=== PATIENT | male | born 1955 | race Caucasian/White ===

== ENCOUNTER → 2021-03-01 | Outpatient (CLI) | payer BC ==
--- NOTE | 2021-03-01 16:15 | XR ---
EXAMINATION TYPE: XR chest 2V DATE OF EXAM: 03/01/2021 COMPARISON: NONE HISTORY: Z01.818 TECHNIQUE: Frontal and lateral views of the chest are obtained. FINDINGS: There is no focal air space opacity, pleural effusion, or pneumothorax seen. The cardiac silhouette size is within normal limits. The osseous structures are intact. IMPRESSION: No acute cardiopulmonary process.
== END | disposition home or self-care (01) ==
LOC: LABPAT 14:19
PROVIDERS: ATTEND Orthopaedic Surgery Orthopaedic Surgery of the Spine
DX: Z01.818 Encounter for other preprocedural examination (principal); G95.9 Disease of spinal cord, unspecified; R00.1 Bradycardia, unspecified
CPT/HCPCS: 71046; 93005

== ENCOUNTER → 2021-03-08 | Outpatient (CLI) | payer BC ==
[2021-03-08 10:41] LABS: Basophils % (A) 1 %; Eosinophils # (A) 0.1 k/uL (0-0.7); Eosinophils % (A) 3 %; HCT 44.3 % (39.0-53.0); HGB 14.8 gm/dL (13.0-17.5); Lymphocytes # (A) 1.7 k/uL (1.0-4.8); Lymphocytes % (A) 40 %; MCHC 33.5 g/dL (31.0-37.0); MCV 98.5 fL (80.0-100.0); Mean Platelet Volume 8.1; Monocytes # (A) 0.2 k/uL (0-1.0); Monocytes % (A) 5 %; Neutrophils % (A) 48 %; Platelet Count 159 k/uL (150-450); RBC 4.49 m/uL (4.30-5.90); RDW 13.2 % (11.5-15.5); WBC 4.2 k/uL (3.8-10.6)
[2021-03-08 10:55] LABS: Partial Thromboplastin Time 23.8 sec (22.0-30.0); Prothrombin Time 10.3 sec (9.0-12.0)
[2021-03-08 11:06] LABS: African American GFR (CKD) >90 (>60 ml/min/1.73 sqM); Anion Gap 8 mmol/L; Blood Urea Nitrogen 16 mg/dL (9-20); Calcium 9.7 mg/dL (8.4-10.2); Carbon Dioxide 26 mmol/L (22-30); Chloride 107 mmol/L (98-107); Glucose 106 mg/dL (74-99); Non-African American GFR(CKD) 87 (>60 ml/min/1.73 sqM); Potassium 4.4 mmol/L (3.5-5.1); Sodium 141 mmol/L (137-145)
[2021-03-08 11:33] LABS: Appearance,Urine Clear (Clear); Bilirubin,Urine Negative (Negative); Blood,Urine Negative (Negative); Color,Urine Yellow; Glucose,Urine (UA) Negative (Negative); Ketones,Urine Negative (Negative); Leukocyte Esterase,Urine Negative (Negative); Nitrite,Urine Negative (Negative); Protein,Urine Negative (Negative); Specific Gravity,Urine 1.022 (1.001-1.035); Urobilinogen,Urine <2.0 mg/dL (<2.0)
== END | disposition home or self-care (01) ==
LOC: LABPAT 09:34
PROVIDERS: ATTEND Orthopaedic Surgery Orthopaedic Surgery of the Spine
DX: Z01.812 Encounter for preprocedural laboratory examination (principal); M50.021 Cervical disc disorder at C4-C5 level with myelopathy
CPT/HCPCS: 36415; 80048; 81003; 85025; 85610; 85730

== ENCOUNTER 2021-03-13 11:17 | Observation (INO) | payer BC ==
[2021-03-07 11:53] VITALS: BMI 29.5
[~2021-03-13 11:17] MED LIST: DEXAMETHASONE SOD PHOSPHATE 4 MG/ML 1 ML VIAL IV ONE; HYDROmorphone 0.5 MG/0.5 ML SYRINGE IVP PRN; ONDANSETRON 4 MG/2 ML VIAL IVP ONE
[2021-03-13] MEDS ORDERED: LIDOCAINE 1% (10MG/ML) FOR IV START INTRADERMA ONE ×2 (12:08→12:13)
[2021-03-13] MEDS: LACTATED RINGERS 1,000 ML IV SCH (12:13)
[2021-03-13] MEDS ORDERED: DEXAMETHASONE SOD PHOSPHATE 10 MG/ML 1 ML VIAL ONE (12:50)
[2021-03-13] MEDS ORDERED: SUCCINYLCHOLINE CHLORIDE VIAL 200 MG/10 ML VIAL IV ONE (12:50)
[2021-03-13] MEDS ORDERED: HYDROmorphone (PF) 1 MG/ML ONE (12:50)
[2021-03-13] MEDS ORDERED: ROCURONIUM 10 MG/ML (5 ML VIAL) IV ONE (12:50)
[2021-03-13] MEDS ORDERED: NEOSTIGMINE 1 MG/ML 10 ML VIAL ONE (12:50)
[2021-03-13] MEDS ORDERED: PROPOFOL 10 MG/ML 20 ML VIAL IV ONE (12:50)
[2021-03-13] MEDS ORDERED: MIDAZOLAM 2 MG/2 ML VIAL ONE (12:50)
[2021-03-13] MEDS ORDERED: fentaNYL (PF) 50 MCG/ML 2 ML AMP ONE (12:50)
[2021-03-13] MEDS ORDERED: GLYCOPYRROLATE 0.2 MG/ML 2 ML VIAL ONE (12:50)
[2021-03-13] MEDS ORDERED: KETOROLAC 15 MG/ML 1 ML VIAL ONE (12:50)
[2021-03-13] MEDS ORDERED: THROMBIN (BOVINE) 5,000 UNIT VIAL TOPICAL ONE (13:25)
[2021-03-13] MEDS ORDERED: LIDOCAINE 2%-EPI 1:100,000 20 ML VIAL SQ ONE (13:25)
[2021-03-13] MEDS ORDERED: GELATIN SPONGE,ABSORB (LARGE) 1 EACH SPONGE MISCELLANE ONE (13:25)
--- NOTE | 2021-03-13 13:58 | XR ---
EXAMINATION TYPE: XR cervical spine 1V DATE OF EXAM: 03/13/2021 COMPARISON: NONE HISTORY: Needle placement TECHNIQUE: One view submitted FINDINGS: ET tube noted. Degenerative change involving the cervical spine most marked at C5-6 and C6- C7. Surgical metallic instrument seen along the anterior margin the spinal column. IMPRESSION: Intraoperative localization
[2021-03-13] MEDS ORDERED: LACTATED RINGERS 1,000 ML IV ONE (14:28)
[2021-03-13] MEDS ORDERED: HYDROmorphone 0.5 MG/0.5 ML SYRINGE IVP PRN (15:32)
[2021-03-13] MEDS ORDERED: BENZOCAINE/MENTHOL LOZENG 1 EACH LOZENGE MUCOUS MEM PRN (15:32)
[2021-03-13] MEDS ORDERED: MAGNESIUM HYDROXIDE 2,400 MG/10 ML CUP PO PRN (15:32)
[2021-03-13] MEDS ORDERED: HYDROmorphone 1 MG/ML 1 ML SYRINGE IVP PRN (15:32)
[2021-03-13] MEDS ORDERED: ONDANSETRON 4 MG/2 ML VIAL IVP PRN (15:33)
[2021-03-13] MEDS ORDERED: ACETAMINOPHEN TAB 325 MG TAB PO PRN (15:33)
--- NOTE | 2021-03-13 15:41 | P.OP ---
Date of Procedure: 03/13/21 Preoperative Diagnosis: Cervical myelopathy, severe cervical stenosis C4 5 C5 6 C6 7, herniated nucleus pulposis C4 5 C5 6 C6 7, upper extremity weakness Postoperative Diagnosis: Same Anesthesia: GETA Pathology: none sent Condition: stable Disposition: PACU Description of Procedure: BRIEF OPERATIVE NOTE Preoperative Diagnosis:Cervical myelopathy, severe cervical stenosis C4 5 C5 6 C6 7, herniated nucleus pulposis C4 5 C5 6 C6 7, upper extremity weakness Postoperative Diagnosis:Cervical myelopathy, severe cervical stenosis C4 5 C5 6 C6 7, herniated nucleus pulposis C4 5 C5 6 C6 7, upper extremity weakness Procedure: Anterior cervical decompression with discectomy and fusion C4 5 C5 6 C6 7 Placement of interbody graft C4 5 C5 6 C6 7 Application of anterior cervical plate C4 5 6 and 7 Surgeon: Dr. Messina Obstetrics Specialist: Ricky Latham is present throughout the entire the case persistence during positioning, dissection, exposure, visualization, and all crucial elements of the case as well as closure. Anesthesia: General anesthesia Estimated blood loss: Approximately 75 mL Complications: None apparent Components implanted: K2M [place] anterior cervical plate with screws and Vikos interbody bone graft with 1 mL of DBX bone putty Disposition: To recovery room in good stable condition. OPERATIVE INDICATIONS The patient has had significant issues in their neck and upper extremities since sustaining an injury when he fell off a ladder. Patient had significant trauma over his head and face and has had severe weakness and issues at his neck and upper extremities since that time. He's had significant scapular winging as well on the right side. He was found have severe disc herniation with significant stenosis particular at C5 6 and C6 7 with disc herniation and stenosis at C4 5 as well. He was having cord changes and evidence of myelopathy. These findings correlate with his imaging and his injury. The patient has been through conservative treatment. He is not having any further benefit despite aggressive conservative care. We discussed possibly surgical intervention. We discussed various treatment options including surgery, and the patient wishes to proceed with surgery We discussed the risk, patient's alternatives and benefits of surgery including but not limited to, risk of bleeding risk of infection, risk of need for further surgery, risk of decreased, loss of motion, muscle function, malunion nonunion, hardware failure, nerve damage, paralysis, heart attack, and . OPERATIVE SUMMARY After discussing all the risks, patient alternatives and benefits at length, the patient elected to proceed with surgical intervention, signed informed consent, and presented for their procedure. The patient was seen and examined in the preoperative holding area and the surgical site was marked. The patient was given antibiotics and brought to the operating room. The patient was positioned on the operating room table in a supine position being careful to pad any bony prominences and pressure points. The patient was sedated and intubated by anesthesia in standard fashion. Once the airway and C- spine were stabilized the patient's arms were padded and tucked at her side, with her shoulders gently taped. The head was placed in a donut pad with the neck in good neutral alignment and position. We were careful to maintain the patient's cervical spine and good neutral alignment and position throughout. The patient was prepped and draped in a normal standard fashion. An appropriate timeout and keystone protocol performed. We were able to proceed with the surgery. The local wound area was infiltrated with local anesthetic. An incision was made transversely approximately 2-1/2 cm over the appropriate levels at C5 6. Dissection was taken down subcutaneously to the level of the platysma which was split in line with its fibers. Dissection was taken with a carotid approach, with the trachea and esophagus medial and the carotid sheath laterally. We dissected down to the anterior surface of the vertebral bodies. Intraoperative x-ray was taken which showed a marker at the appropriate level of C5 6. With the appropriate level positively confirmed, we were able to proceed with discectomy at the appropriate levels starting at C6 7 and then moving his C5 6 and then to C4 5. All of the operative levels were exposed appropriately. The patient had all their twitches back, and there was no evidence of recurrent laryngeal issue. The wound was copiously irrigated and suctioned dry as had been done periodically throughout the case. At the appropriate level/levels, I established an annulotomy with an 11 blade scalpel. A discectomy was performed with a combination of pituitary rongeurs, curettes, a high-speed bur, and Kerrison rongeurs. The posterior longitudinal ligament was taken down as were any posterior osteophytes. There is severe disc herniation with calcification of the posterior longitudinal ligament both at C5 6 and C6 7 causing further stenosis and compression and is spinal cord. Great care was taken to remove the disc herniations as well as the hard disc at the area. It seemed as though there had been some potential injury posteriorly which had caused further change in the posterior longitudinal ligament and consultation over the area. I was able to remove the posterior longitudinal ligament was tear ossification as well. This gave good central and bilateral foraminal decompression. There is no evidence of any dural tear or leak. The endplates were prepared with a high- speed bur. With the endplates in good parallel position, I was able to size for the appropriate size interbody graft. The wound was irrigated and suctioned dry the graft was prepared and malleted into position. It had good alignment and position with the anterior surface flush with the anterior surface of the vertebral bodies at C4 5 and 6 and 7. This was done similarly the appropriate levels. With the grafts intact, I was able to measure and contour and appropriate sized plate. The plate was positioned at the midline over the appropriate levels from C4 to C7. Screw holes were established with a hand drill and drill guide. Screws were placed in good alignment and position with excellent bony purchase. They were seated under the locking device. The construct was checked and found to be stable. Intraoperative x-ray was taken which showed good alignment and position of the implants at the appropriate levels. There was no evidence of any dural tear or leak. Good hemostasis was maintained. The wound was copiously irrigated and suctioned dry as had been done periodically throughout the case. The platysma was closed with absorbable suture. The subcutaneous tissue was closed. The subcuticular tissue was closed with absorbable suture. The wound was cleaned and dried and dressed appropriately. A soft cervical collar was placed appropriately. The patient was woken up by anesthesia, extubated, transferred back gently to their hospital bed and brought to the recovery room in good stable condition. The patient will be admitted to the hospital for appropriate postoperative care, medical management and monitoring. We will continue to follow them closely about the postoperative course.
--- NOTE | 2021-03-13 15:45 | XR ---
EXAMINATION TYPE: XR cervical spine 1V DATE OF EXAM: 03/13/2021 COMPARISON: NONE HISTORY: Postop TECHNIQUE: One view submitted FINDINGS: ET tube noted and there is postsurgical change involving the mid and lower cervical spine. Portions obscured due to overlying soft tissues. Visualized alignment is near-anatomic. IMPRESSION: Postoperative change
[2021-03-13] MEDS: SODIUM CHLORIDE 0.9% 1,000 ML IV SCH (17:21)
[2021-03-13] MEDS: CYCLOBENZAPRINE 10 MG TAB PO PRN (17:30)
[2021-03-13] MEDS: HYDROcodone/APAP 5-325MG 1 EACH TAB PO PRN (22:57)
[2021-03-14] MEDS: CYCLOBENZAPRINE 10 MG TAB PO PRN (05:54)
[2021-03-14] MEDS: LACTATED RINGERS 1,000 ML IV SCH ×2 (05:57→17:30)
[2021-03-14] MEDS: SODIUM CHLORIDE 0.9% 1,000 ML IV SCH ×2 (05:57→17:30)
[2021-03-14 06:59] LABS: Basophils % (A) 0 %; Eosinophils % (A) 0 %; HCT 42.6 % (39.0-53.0); HGB 14.5 gm/dL (13.0-17.5); Lymphocytes # (A) 1.1 k/uL (1.0-4.8); Lymphocytes % (A) 10 %; MCH 33.3 pg (25.0-35.0); MCHC 34.1 g/dL (31.0-37.0); MCV 97.7 fL (80.0-100.0); Mean Platelet Volume 8.3; Monocytes # (A) 0.5 k/uL (0-1.0); Monocytes % (A) 5 %; Neutrophils # (A) 8.4 k/uL (1.3-7.7); Neutrophils % (A) 84 %; Platelet Count 174 k/uL (150-450); RBC 4.36 m/uL (4.30-5.90); RDW 12.9 % (11.5-15.5); WBC 10.1 k/uL (3.8-10.6)
[2021-03-14] MEDS: HYDROcodone/APAP 5-325MG 1 EACH TAB PO PRN ×2 (09:06→19:27)
--- NOTE | 2021-03-14 12:50 | P.PN ---
Progress Note - Text Progress Note Date: 03/14/21 Orthopedic spine: History of present illness: Patient is a pleasant 65-year-old male who is seen at the bedside following anterior cervical decompression and fusion performed yesterday. Patient states they are doing okay postsurgically. He has continued to have some pain at his cervicothoracic junction which was present prior to surgical intervention. He continues to have scapular winging on the right. He does feel he has better range of motion of his right upper extremity that he did prior to surgical intervention. He has some stiffness at his cervical spine. Currently does not complain of nausea, vomiting, fever, or chills. Patient states pain has been adequately controlled. Patient is eating without difficulty. Postoperatively he has had some difficulty with urination and had retention overnight. He had a Weinstein catheter during surgical intervention which was removed following surgical intervention. Due to his inability to ambulate the Weinstein catheter had been reinserted. Weinstein catheter is currently intact. He continues to have blood and urine within the Weinstein catheter bag and hose. He states he does have a previous history of penile injury and sought further evaluation with urology. He states he did have internal scar formation at that time. He is currently waiting for consultation with urology. Physical Exam Cervical Fusion: Status post surgical day number 1 Patient is awake, alert, and oriented 3 Vital signs stable Good chest excursion with deep inspiration and expiration Education Technician strength, thumb strength, interosseous strength, biceps strength, triceps strength, and shoulder strength positive sustained bilaterally Some pain with palpation over the cervical thoracic junction posteriorly Evidence of right scapular winging Pneumatic cuffs intact bilateral lower extremities Dressing is clean, dry, and intact; no erythema, purulence, or signs of infection Soft cervical collar is intact; collar is removed during physical examination Weinstein catheter intact with approximately 1200 mL of blood and urine within the Weinstein catheter bag and tubing Assessment: Status post C4-5, C5-6, and C6-7 anterior cervical decompression and fusion Cervicothoracic pain Right scapular winging Cervical myelopathy Upper extremity weakness Postoperative urinary retention Hematuria History of penile injury History of headaches History of dizziness History of blurred vision History of fall from roof Plan: 1. Ambulate as tolerated; work with Physical Therapy to increase mobilization 2. Continue pain control with oral and IV medications as needed; wean off IV medications in anticipation for discharge 3. Patient may shower with Optifoam dressing; patient may remove Optifoam in 3 days and shower without a dressing at that time 4. Patient is currently in for consultation by urology for postoperative urinary retention and hematuria 5. We will continue to follow the patient closely; if the patient is able to improve in regards to his cervical spine and does have improvement in regards to his urinary retention and hematuria we may plan for discharge home as early as tomorrow, 03/15/2021 6. Patient can follow-up with Ricky Vargas PA-C or Dr. Amarjit Messina at [facility] in 2-3 weeks following discharge
--- NOTE | 2021-03-14 12:55 | P.GSCN ---
History of Present Illness Consult date: 03/14/21 History of present illness: 65-year-old male in the hospital for cervical fusion. This is due to a ruptured disc from a fall off a roof several months ago. The patient had a catheter placed intraoperatively. When he came out he was unable to urinate went back in urinary retention. He subsequently had some bleeding. The patient is interviewed at the bedside. Urologically he has had problems before requiring cystoscopy. He was found to have a mild urethral stricture that did not require any treatment. This evaluation was in [place]. For the most part he has had no problems urinating. Is been no discomfort or blood. His preoperative urine was clear. There is old blood in the catheter noted. Review of Systems All systems: negative - Constitutional Denies fever, Denies weight loss - EENT Eyes: denies blurred vision Ears, nose, mouth and throat: Denies dysphagia - Cardiovascular Denies chest pain, Denies shortness of breath - Respiratory Denies cough, Denies 7 - Gastrointestinal Reports as per HPI - Genitourinary Denies dysuria, Denies hematuria - Integumentary Denies rash, Denies unusual bruising - Neurological Denies headaches, Denies syncope - Hematologic/Lymphatic Denies easy bleeding, Denies easy bruising Past Medical History Past Medical History: Eye Disorder Additional Past Medical History / Comment(s): HERNIATED DISC. BILAT GLAUCOMA- UNDER CONTROL AT THIS TIME History of Any Multi-Drug Resistant Organisms: None Reported Past Surgical History: Hernia Repair, Orthopedic Surgery Additional Past Surgical History / Comment(s): LT KNEE SX. COLONOSCOPY/EGD Past Anesthesia/Blood Transfusion Reactions: No Reported Reaction Smoking Status: Current every day smoker - Past Family History Father Family Medical History: Cancer Brother(s) Family Medical History: Cancer Medications and Allergies Home Medications Medication Instructions Recorded Confirmed Type Naproxen Sodium [Aleve] 220 mg PO DAILY PRN 03/07/21 03/13/21 History Allergies Allergy/AdvReac Type Severity Reaction Status Date / Time No Known Allergies Allergy Verified 03/13/21 11:50 Surgical - Exam Vital Signs Temp Pulse Resp BP Pulse Ox 97.7 F 50 L 16 128/80 99 03/13/21 11:54 03/13/21 11:54 03/13/21 11:54 03/13/21 11:54 03/13/21 11:54 - General well developed, well nourished, moderate distress - Eyes PERRL - ENT no hearing loss - Neck trachea midline - Respiratory normal expansion, normal respiratory effort - Cardiovascular Rhythm: regular - Abdomen Abdomen: soft, non tender - Genitourinary Indwelling catheter with old blood in the catheter tubing - Neurologic normal coordination, normal sensation - Musculoskeletal normal posture - Psychiatric oriented to time, oriented to person, oriented to place, speech is normal, memory intact Results - Labs 03/14/21 06:32 Abnormal Lab Results - Last 24 Hours (Table) 03/14/21 Range/Units 06:32 Neutrophils # 8.4 H (1.3-7.7) k/uL Assessment and Plan Assessment: Impression: Gross hematuria post urine retention. Postoperative urine retention. History of urethral stricture. Recommendations: I recommend leaving the Weinstein in overnight and try to flush the old blood out of the urinary system. The catheter can be removed in the morning for a voiding trial. Given his history and a preoperative clear urine further urologic management is probably not necessary as long as he can void postoperatively. We'll follow this patient with you.
[2021-03-15 04:52] VITALS: PULSE 52; RESP 16
[2021-03-15] MEDS: SODIUM CHLORIDE 0.9% 1,000 ML IV SCH (09:30)
--- NOTE | 2021-03-15 12:36 | P.DS ---
Providers Date of admission: 03/14/21 13:34 Expected date of discharge: 03/15/21 Attending physician: Lizandro Messina Consults: 03/14/21 09:12 Consult Physician Routine Consulting Provider: Pa Herrera Consult Reason/Comments: Hematuria Do you want consulting provider notified?: Already Contacted Primary care physician: Devin Vital - Discharge Diagnosis(es) (1) Cervical stenosis of spinal canal Current Visit: Yes Status: Acute (2) Upper extremity weakness Current Visit: Yes Status: Acute (3) Pain of cervicothoracic region of spine Current Visit: Yes Status: Acute (4) Urinary retention Current Visit: Yes Status: Acute (5) Hematuria Current Visit: Yes Status: Acute (6) Cervical myopathy Current Visit: Yes Status: Acute Hospital Course: This is a pleasant 65-year-old male who presented with cervical myelopathy, C4- 5, C5-6, and C6-7 severe cervical stenosis and herniated nucleus pulposus, upper extremity weakness, and scapular winging who failed outpatient conservative therapy. He was admitted for a C4-5, C5-6, and C6-7 anterior cervical decompression and fusion. The patient tolerated the procedure well and did well postoperatively in regards to his cervical spine. He does have some soreness in his cervical spine today but feels it may be from mainly lying in bed. He does continue to have some cervical thoracic pain. His pain is being managed with medications. He has better range of motion of his right upper extremity postoperatively. Postoperatively he has had difficulty with urinary retention and hematuria. He has a history of penile injury. He was seen and examined by Dr. Herrera in urology yesterday. A Weinstein catheter was previously placed. Urology is planning for discontinuation of the Weinstein catheter today to see the patient can void independently. If he is able to void on his own and is cleared by urology, patient would like to be discharged home today. If the patient is cleared by urology, patient will be discharged home today. Condition on day of discharge stable. Patient will be discharged home. Patient was cleared preoperatively for surgery by Dr. Vital. Patient currently denies any nausea, vomiting, fever, or chills. Patient is eating without difficulty. Patient may shower Optifoam dressing intact. Patient may remove Optifoam dressing in 3 days and shower without a dressing at that time. Patient should refrain from driving until at least after their first follow-up appointment in the office. Patient should avoid excessive neck flexion, extension, rotation, and lateral sidebending; no overhead lifting; no lifting greater than 10 pounds. MAPS has been reviewed today, 03/15/2021. An "Opiod Start Talking" Form has been signed and placed in the patient's chart. A prescription has been written for Atwood 5 mg/325 mg 1 tablet every 6 hours as needed for pain, dispensed #28. He is also given a prescription for cyclobenzaprine 10 mg 1 tab 3 times a day as needed for muscle spasm, dispensed #60. Patient's other medical diagnoses include history of penile injury, urethral stricture, headaches, dizziness, blurred vision, and a fall from roof Physical Exam on day of discharge: Status post surgical day number 2 Patient is awake, alert, and oriented 3 Vital signs stable Good chest excursion with deep inspiration and expiration Fuel Assembler strength, thumb strength, interosseous strength, biceps strength, triceps strength, and shoulder strength positive sustained bilaterally Some pain with palpation over the cervical thoracic junction posteriorly Evidence of right scapular winging Pneumatic cuffs intact bilateral lower extremities Dressing is clean, dry, and intact; no erythema, purulence, or signs of infection Soft cervical collar is intact; collar is removed during physical examination Weinstein catheter intact with approximately 1200 mL of dark blood and urine within the Weinstein catheter bag and tubing Procedures: C4-5, C5-6, and C6-7 anterior cervical decompression and fusion Patient Condition at Discharge: Stable Plan - Discharge Summary Discharge Rx Participant: No New Discharge Prescriptions: New Cyclobenzaprine [Flexeril] 10 mg PO TID PRN #60 tab PRN Reason: Muscle Spasm HYDROcodone/APAP 5-325MG [Atwood 5] 1 each PO Q6HR PRN #28 tab PRN Reason: Pain No Action Naproxen Sodium [Aleve] 220 mg PO DAILY PRN PRN Reason: Pain Discharge Medication List Naproxen Sodium [Aleve] 220 mg PO DAILY PRN 03/07/21 [History] Cyclobenzaprine [Flexeril] 10 mg PO TID PRN #60 tab 03/15/21 [Rx] HYDROcodone/APAP 5-325MG [[place]wood 5] 1 each PO Q6HR PRN #28 tab 03/15/21 [Rx] Follow up Appointment(s)/Referral(s): Ricky Vargas, EM [PHYSICIAN GROUND INSTRUCTOR [employer]] - 2 Weeks (Patient may follow-up with Ricky Vargas PA-C or Dr. Amarjit Messina at [facility] in 2-3 weeks following discharge. ) Activity/Diet/Wound Care/Special Instructions: 1. Patient may shower with Optifoam dressing intact. 2. Patient may remove Optifoam dressing in 4 days and shower without a dressing at that time. 3. Patient may wear soft cervical collar for comfort support as needed. 4. Patient should refrain from driving until at least after their first follow- up appointment in the office. 5. Patient should avoid excessive cervical flexion, extension, and side bending; avoid overhead lifting; no lifting greater than 10 pounds 6. Take medications as prescribed 7. Do not soak in tub Discharge Disposition: HOME SELF-CARE
[2021-03-15 12:45] VITALS: BP 130/84; TEMP 98
--- NOTE | 2021-03-15 18:48 | P.PN ---
Progress Note - Text Progress Note Date: 03/15/21 No acute overnight event, urine is blood tinged, no clots appreciated, some urethral meatus laceration, no bleeding appreciated -Weinstein can be removed, obtain PVR after patient voids, if <200 mL ok for discharge from urology standpoint, -IF able to void can f/u PRN
== END 2021-03-15 16:00 | disposition home or self-care (01) ==
LOC: OR 11:17 → 5NMEDONC 15:36 → OR 03-14 13:34
PROVIDERS: ADMIT Orthopaedic Surgery Orthopaedic Surgery of the Spine; ATTEND Orthopaedic Surgery Orthopaedic Surgery of the Spine
DX: M48.02 Spinal stenosis, cervical region (principal); M50.021 Cervical disc disorder at C4-C5 level with myelopathy; N99.89 Other postprocedural complications and disorders of genitourinary system; R33.9 Retention of urine, unspecified; R31.0 Gross hematuria; N35.919 Unspecified urethral stricture, male, unspecified site; M25.78 Osteophyte, vertebrae; H40.9 Unspecified glaucoma; H91.90 Unspecified hearing loss, unspecified ear; F17.200 Nicotine dependence, unspecified, uncomplicated; W13.2XXA Fall from, out of or through roof, initial encounter; Z20.822 Contact with and (suspected) exposure to COVID-19; Z79.1 Long term (current) use of non-steroidal anti-inflammatories (NSAID); Z79.82 Long term (current) use of aspirin; Z87.820 Personal history of traumatic brain injury; Z87.828 Personal history of other (healed) physical injury and trauma; Z98.890 Other specified postprocedural states; Z80.9 Family history of malignant neoplasm, unspecified; Z83.3 Family history of diabetes mellitus; Z82.49 Family history of ischemic heart disease and other diseases of the circulatory system
CPT/HCPCS: 22551; 22552 ×2; 20930; 86900; 86901; 85025; 86850; 87635; 72020; G0378 ×2; C1713 ×2; C1762 ×2; J2250; J0330; J1100; J2710; J0690 ×2; J2405; J3010; J1170 ×2; J1885; J2704

== ENCOUNTER → 2023-02-13 | Outpatient (CLI) | payer MEDICARE, BC ==
[2023-02-13 09:16] LABS: African American GFR (CKD) >90 (>60 ml/min/1.73 sqM); Blood Urea Nitrogen 17 mg/dL (9-20); Non-African American GFR(CKD) >90 (>60 ml/min/1.73 sqM)
--- NOTE | 2023-02-13 10:48 | CT ---
EXAMINATION TYPE: CT abdomen pelvis wo/w con DATE OF EXAM: 02/13/2023 COMPARISON: None HISTORY: Abdominal pain CT DLP: 2827 mGycm CONTRAST: CT scan of the abdomen and pelvis is performed with Oral Contrast and without and with IV Contrast, p atient injected with 100 ml mL of Isovue 300. FINDINGS: LUNG BASES-: No visible nodule. No infiltrate. LIVER/GB: No calcified gallstones. There is evidence of hepatic steatosis. No space occupying hepat ic lesion. Biliary tree is of normal caliber. PANCREAS: No inflammation. No distinct mass. SPLEEN: No splenic enlargement. No lesion seen. ADRENALS: No nodule. No thickening. KIDNEYS/BLADDER: No hydronephrosis. Nonobstructing 8 mm calculus upper pole right kidney with a smal l adjacent 2 mm calculus noted. 4 mm nonobstructing calculus midpole left kidney. No distinct renal m ass. Urinary bladder grossly unremarkable. BOWEL: Normal appendix. Normal bowel caliber. No inflammation. GENITAL ORGANS: No gross abnormality. LYMPH NODES: No greater than 1cm abdominal or pelvic lymph nodes are appreciated. AORTA: No significant abnormality. OSSEOUS STRUCTURES: No significant abnormality is seen. OTHER: Fat-containing left inguinal hernia. IMPRESSION: 1. Nonobstructing nephrolithiasis.
== END | disposition home or self-care (01) ==
LOC: RADCTMAIN 08:00
PROVIDERS: ATTEND Family Medicine
DX: N20.0 Calculus of kidney (principal); D50.9 Iron deficiency anemia, unspecified; R53.83 Other fatigue
CPT/HCPCS: 82565; 84520; 74178; 36415; Q9967